=== PATIENT | female | born 1945 | race Caucasian/White ===

== ENCOUNTER 2024-02-29 09:57 | Emergency (ER) | payer MEDICARE, SELFPAY ==
[2024-02-29 10:05] VITALS: BP 176/83; PULSE 79; RESP 16; TEMP 36.8; O2SAT 97
--- NOTE | 2024-02-29 10:15 | ED.WOUNDLAC ---
HPI - Wound/Laceration General Chief Complaint: Wound/Laceration Stated Complaint: R hand skin tear Time Seen by Provider: 02/29/24 10:00 History of Present Illness HPI narrative: 78-year-old female presenting to the emergency department for evaluation of a large right hand wound. Patient states that she scraped it against a wooden coffee table and avulsed the top layer of her skin on the dorsum of her right hand. She has a very large defect measuring approximately 8 cm and jagged. The top layer of skin and subcutaneous tissue was filleted down with exposure of the underlying musculature but no exposure of tendons or vasculature. Patient is not sure of her tetanus is up-to-date. She did not take any for pain prior to arrival. Denies any other injuries. States she was otherwise in her normal state of health. She has thin skin and bruises easily. No other symptoms at this time. Injury occurred several hours prior to arrival. Bleeding is controlled with direct pressure. Related Data Allergies Allergy/AdvReac Type Severity Reaction Status Date / Time No Known Allergies Allergy Verified 02/29/24 09:58 Review of Systems Review of Systems: As reviewed above in HPI Exam Narrative: GENERAL: [Well-appearing, well-nourished, and in no acute distress.] HEAD: [Normocephalic, atraumatic.] EYES: [PERRLA and EOMI.] ENT: Nares clear, no rhinorrhea or epistaxis. Mucous membranes moist. NECK: Supple. CHEST: [Clear to auscultation. No respiratory distress.] HEART: [Regular rate and rhythm]. No murmur heard. [Normal peripheral pulses.] ABDOMEN: [Soft, nondistended], [nontender], [No rigidity or guarding] EXTREMITIES: Normal range of motion. 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 No active bleeding but there is exposed subcutaneous tissues. No involvement of the muscle layer, no vasculature is exposed. NEURO: [No focal deficits]. Alert and oriented [x3.] PSYCH: [Normal mood and affect.] Course Vital Signs Vital signs: Vital Signs Temperature 36.8 C 02/29/24 10:05 Pulse Rate 79 02/29/24 10:05 Respiratory Rate 16 02/29/24 10:05 Blood Pressure 176/83 H 02/29/24 10:05 Pulse Oximetry 97 02/29/24 10:05 Oxygen Delivery Room Air 02/29/24 10:05 Temperature 37.2 C 02/29/24 11:01 Pulse Rate 79 02/29/24 10:05 Respiratory Rate 16 02/29/24 10:05 Blood Pressure 176/83 H 02/29/24 10:05 Pulse Oximetry 97 02/29/24 10:05 Oxygen Delivery Room Air 02/29/24 10:05 Procedures Laceration Laceration 1: Date: 02/29/24 Time: 11:27 Site: hand Side (If applicable): right Size (cm): 8 Description: stellate, flap, irregular and contaminated Depth: simple, single layer Local Anesthetic: other anesthetic (topical LET gel) Amount of anesthesia used (mL): 3 Pre-repair: wound explored, irrigated extensively (150cc NS), minor debridement, deep structures intact and wound margins revised (revised skin flaps for good wound edge approximation) ====== Skin Level ====== Skin layer closed with: nylon, dermabond and steri strips Size (cm): 5-0 Number of sutures: 8 Technique: simple, interrupted ====== Subcutaneous Layer ====== ====== Muscle Layer ====== ====== Tendon Layer ====== Dressing: Non adherent dressing, pressure dressing with Pepe wrap MDM - Wound/Laceration MDM Narrative Medical decision making narrative: 78-year-old female presents with large jagged skin tear and laceration to her right upper extremity wall scraping against a coffee table at home. Patient is not sure for tetanus is up today. She has a very large 8 cm jagged laceration and skin tear that requires repair. Please see procedure note above for full details. Her tetanus will be updated she was provided Tylenol and ibuprofen for pain control and let gel was applied for topical anesthesia prior to repair with both suture material and Dermabond with Steri-Strips bolstering with a complex repair. No imaging needed at this time. Patient tolerated the procedure well and is stable for discharge home at this time with wound care instructions and return precautions as well as instructions for follow-up for wound check and suture removal. Patient family verbalized understanding and were safe for discharge. Differential Diagnosis Differential diagnosis: Likely laceration, abrasion and avulsion of skin Medical Records Attestation: I reviewed the patient's medical records. Discharge Plan Discharge Clinical Impression: Complicated laceration of hand, Avulsion of skin Patient Disposition: Home, Self-Care Condition: Stable Instructions: Antibiotic Form, Care For Your Stitches (ED), Laceration (ED), Skin Avulsion (ED), Skin Adhesive Care (ED), Steristrips (ED) Additional Instructions: We have provided wound care instructions under discharge instructions, follow-up in 10-14 days for wound check and suture removal at that time. If any persistent bleeding happens applied direct pressure and return. Follow-up with regular doctor, Urgent Care, or any emergency department for wound check and removal. Tylenol and ibuprofen for pain control and swelling. Patient Language: Amharic Follow-up/Referrals: PHYSICIAN NOT ON STAFF,NONSTAFF [Primary Care Provider] - Time of Disposition: 11:31
[2024-02-29] MEDS: LIDOCAINE, EPINEPHRINE, TETRACAINE VISCOUS SOLN 3 ML TOPICAL (10:16)
[2024-02-29] MEDS: IBUPROFEN 600 MG TABLET PO (10:16)
[2024-02-29] MEDS: ACETAMINOPHEN 500 MG TABLET 1000 MG PO (10:17)
[2024-02-29] MEDS: TETANUS,DIPHTHERIA,AC PERTUSSIS ADULT (0.5 ML) BOOSTRIX (10:17)
[2024-02-29 11:01] VITALS: TEMP 37.2
== END 2024-02-29 11:40 | disposition home or self-care (01) ==
PROVIDERS: Emergency Provider Student in an Organized Health Care Education/Training Program
DX: S61.411A Laceration without foreign body of right hand, initial encounter (principal); W22.03XA Walked into furniture, initial encounter; Z23 Encounter for immunization
CPT/HCPCS: 12004; 90715; 99282; A9270

== ENCOUNTER 2024-03-10 09:36 | Emergency (ER) | payer MEDICARE, SELFPAY ==
--- NOTE | 2024-03-10 09:44 | ED.GENADULT ---
HPI - General Adult General Chief complaint: Skin/Abscess/Foreign Body Stated complaint: R HAND INJURY Source: patient Mode of arrival: ambulatory Limitations: no limitations History of Present Illness HPI narrative: 78-year-old female presented for complaint of a wound to the right hand sustained 10 days ago. Endorses a skin tear injury from striking her hand on a table. She was seen in at outside facility the day of, states sutures were placed as well as Steri-Strips and glue over this skin wound. According to the daughter the skin wound appeared to be closed at the time. They kept the wound covered for 4 days, then applied CeraVe ointment. Yesterday they removed steri strips and noted the hand was red, the wound looks worse with bloody drainage, and the skin is 'flapping.' Endorses pain and decreased ROM with movement of the wrist. Denies numbness, tingling or weakness to hand hand/fingers, change in temperature or decreased ROM to the fingers. Denies n/v/d/f/c. Related Data Allergies Allergy/AdvReac Type Severity Reaction Status Date / Time No Known Allergies Allergy Verified 03/10/24 10:14 Review of Systems Review of Systems: CONSTITUTIONAL: Denies body aches, fever, chills, or sweats. CARDIOVASCULAR: Denies chest pain, palpitations, or edema. RESPIRATORY: Denies cough or dyspnea. GASTROINTESTINAL: Denies abdominal pain, nausea, vomiting, or diarrhea. SKIN: reports right hand redness, drainage NEUROLOGIC: Denies numbness, tingling, or weakness. PMFSH Comments At time of signature, I have reviewed and agree with nursing past medical, surgical, social and family history unless otherwise noted. Please see nursing chart for further information. There is no relevant family history pertinent to the presenting complaint Exam Narrative: GENERAL: Well-appearing EYES: conjunctivae clear, and EOMI. ENT: Mucous membranes moist. CHEST: Clear to auscultation. HEART: Regular rate and rhythm. SKIN: Warm, dry. Right dorsal hand erythematous with mild swelling, 6x4cm area of slough with foul odor. No streaking. CMS intact to digits. Decreased ROM to wrist. NEURO: Alert and oriented x3. Course Course Emergency Course: Patient is aware of diagnosis, understands and agrees to treatment plan. Anticipatory guidance given. Patient agrees to follow-up as directed and is aware of reasons to seek care at the emergency department. Portions of this record may have been created with voice recognition software Level of Care: Express Care Visit Vital Signs Vital signs: Vital Signs Temperature 98.4 F 03/10/24 09:49 Pulse Rate 72 03/10/24 09:49 Respiratory Rate 16 03/10/24 09:49 Blood Pressure 161/81 H 03/10/24 09:49 Pulse Oximetry 100 03/10/24 09:49 Temperature 98.4 F 03/10/24 09:49 Pulse Rate 72 03/10/24 09:49 Respiratory Rate 16 03/10/24 09:49 Blood Pressure 161/81 H 03/10/24 09:49 Pulse Oximetry 100 03/10/24 09:49 Reviewed Transfer Transfered to: [facility] Transportation: Other (private vehicle) Transfer rationale: Pt is agreeable to transfer. Requests transfer to [facility] via private vehicle. Risks of transportation reviewed with pt including injury, worsening of condition and . v/u. Daughter will be driving pt; Report called to hospital, spoke with Dr Paiz, accepting physician. Pt is in stable condition at time of transfer. Advised to remain NPO and go directly to the hospital. Medical Decision Making MDM Narrative Medical decision making narrative: Discussed physical exam findings. Wound cleansed with skintegrity and saline, vaseline gauze and telfa applied. Advised ER transfer for further evaluation. Pt is new to the area, establishing with pcp next week. Requesting [facility]. Differential Diagnosis Differential Diagnosis: Abrasion, avulsion, laceration, cellulitis Vital Signs Vital Signs: Vital Signs Temperature 98.4 F 03/10/24 09:49 Pulse Rate 72 03/10/24 09:49 Respiratory Rate 16 03/10/24 09:49 Blood Pressure 161/81 H 03/10/24 09:49 Pulse Oximetry 100 03/10/24 09:49 Temperature 98.4 F 03/10/24 09:49 Pulse Rate 72 03/10/24 09:49 Respiratory Rate 16 03/10/24 09:49 Blood Pressure 161/81 H 03/10/24 09:49 Pulse Oximetry 100 03/10/24 09:49 Discharge Plan Discharge Clinical Impression: Cellulitis Patient Disposition: Acute Care Hospital Condition: Stable Patient Language: Irish Follow-up/Referrals: Dino,Nika [Other] Time of Disposition: 10:15
[2024-03-10 09:49] VITALS: BP 161/81; PULSE 72; RESP 16; TEMP 36.9; O2SAT 100
== END 2024-03-10 10:15 | disposition short-term general hospital (02) ==
PROVIDERS: Emergency Provider Nurse Practitioner Family
DX: L03.113 Cellulitis of right upper limb (principal)
CPT/HCPCS: 99212; 99213; G0463

== ENCOUNTER 2024-03-10 10:40 | Emergency (ER) | payer MEDICARE, SELFPAY ==
[2024-03-10 10:49] VITALS: BP 176/75; PULSE 71; RESP 18; TEMP 36.4; O2SAT 100
[2024-03-10 13:01] LABS: Basophils Percent Auto 0.2 % (0.2-1.2); Eosinophils Absolute Auto 0.2 K/mm3 (0-0.3); Eosinophils Percent Auto 1.9 % (0-4.4); Hematocrit 38.7 % (37.0-47.0); Immature Granulocyte Absolute 0.04 K/mm3 (0.00-0.031); Immature Granulocyte Percent A 0.5 % (0-0.5); Lymphocytes Absolute Auto 1.57 K/mm3 (0.9-3.2); Lymphocytes Percent Auto 18.6 % (18.3-44.2); Mean Corpuscular HGB Conc 33.6 g/dl (32-36); Mean Corpuscular Hemoglobin 32.4 pg (26-34); Mean Corpuscular Volume 96.5 fl (80-100); Mean Platelet Volume 9.8 fl (7.4-10.4); Monocytes Absolute Auto 1.1 K/mm3 (0.1-0.6); Monocytes Percent Auto 12.6 % (2.6-8.5); Neutrophils Absolute Auto 5.6 K/mm3 (1.3-6.7); Neutrophils Percent Auto 66.2 % (45.5-73.1); Platelet Count Result 297 k/mm3 (150-375); Red Blood Count 4.01 M/mm3 (4.2-5.4); Red Cell Distribution Width 11.9 % (11.5-14.5); White Blood Count 8.4 K/mm3 (4.5-10.0)
--- NOTE | 2024-03-10 13:08 | ED_ITS ---
HPI - Extremity Problem General Chief complaint: Extremity Problem,Nontraumatic Stated complaint: hand infection Time Seen by Provider: 03/10/24 12:19 History of Present Illness HPI Narrative: Patient is a 70-year-old female who presents ER with wound to the dorsum of the right hand extending to the wrist. Had a skin tear about 10 days ago and it was sutured shut. Initially looked well but then the skin began to and she is left with a weeping ulceration. Was seen in urgent care who sent her here for further evaluation. Patient reports her fingers were all swollen but the swelling has decreased. No fevers or chills or sweats. No additional trauma. Tetanus shot updated on a previous visit. Related Data Allergies Allergy/AdvReac Type Severity Reaction Status Date / Time No Known Allergies Allergy Verified 03/10/24 10:14 Review of Systems 2 Constitutional: Constitutional: Reports no additional constitutional complaints Musculoskeletal: Musculoskeletal: Reports no additional musculoskeletal complaints Integumentary/Breasts: Skin/Breast: Reports system reviewed and no additional complaints, except as docu and Reports skin ulcer Exam 2 Narrative: GENERAL: Well-appearing, well-nourished, and in no acute distress. HEAD: Normocephalic, atraumatic. ENT: Mucous membranes moist. EXTREMITIES: Normal range of motion. No edema. SKIN: Warm, dry. Ulcerated sloughing wound of the dorsum of the right hand extending to the wrist. Surrounding erythema is noted with mild warmth. No purulent drainage. No exposure of bone or tendon. There to dry eschar centrally within the wound. Measures 3 cm x 3.5 cm. Initial wound was 8 cm in circumference NEURO: Alert and oriented x3. PSYCH: Normal mood and affect. Course Course Emergency Course: Informed of results. Discussed with Dr. Alexander. Will start doxycycline. F/u in clinic and wound care will be required. Dressed with nonadherent. Vital Signs Vital signs: Vital Signs Temperature 97.6 F 03/10/24 10:49 Pulse Rate 71 03/10/24 10:49 Respiratory Rate 18 03/10/24 10:49 Blood Pressure 176/75 H 03/10/24 10:49 Pulse Oximetry 100 03/10/24 10:49 Oxygen Delivery Room Air 03/10/24 10:49 Temperature 97.6 F 03/10/24 10:49 Pulse Rate 71 03/10/24 10:49 Respiratory Rate 18 03/10/24 10:49 Blood Pressure 176/75 H 03/10/24 10:49 Pulse Oximetry 100 03/10/24 10:49 Oxygen Delivery Room Air 03/10/24 10:49 MDM - Extremity (Nontraumatic) Lab Data 03/10/24 12:49 03/10/24 12:49 Labs: Lab Results 03/10/24 Range/Units 12:49 WBC 8.4 (4.5-10.0) K/mm3 RBC 4.01 L (4.2-5.4) M/mm3 Hgb 13.0 (12.0-15.0) g/dL Hct 38.7 (37.0-47.0) % MCV 96.5 (80-100) fl MCH 32.4 (26-34) pg MCHC 33.6 (32-36) g/dl RDW 11.9 (11.5-14.5) % Plt Count 297 (150-375) k/mm3 MPV 9.8 (7.4-10.4) fl Immature Gran % (Auto) 0.5 (0-0.5) % Neut % (Auto) 66.2 (45.5-73.1) % Lymph % (Auto) 18.6 (18.3-44.2) % [place] % (Auto) 12.6 H (2.6-8.5) % Eos % (Auto) 1.9 (0-4.4) % Baso % (Auto) 0.2 (0.2-1.2) % Lymph # (Auto) 1.57 (0.9-3.2) K/mm3 [place] # (Auto) 1.1 H (0.1-0.6) K/mm3 Eos # (Auto) 0.2 (0-0.3) K/mm3 Baso # (Auto) 0.0 (0.0-0.1) K/mm3 Abs Immat Gran (auto) 0.04 H (0.00-0.031) K/mm3 Absolute Neuts (auto) 5.6 (1.3-6.7) K/mm3 Absolute Nucleated RBC 0.000 (0.0-0.012) K/mm3 Nucleated RBC % 0.0 (0.0-0.2) % Sodium 134 L (137-145) mmol/L Potassium 4.8 (3.4-5.0) mmol/L Chloride 98 (98-107) mmol/L Carbon Dioxide 26 (22-30) mmol/L Anion Gap 10 (4-12) mmol/L BUN 17 (7-17) mg/dL Creatinine 0.53 L (0.7-1.0) mg/dL Estim Creat Clear Calc 68 ml/min Estimated GFR > 60 (59 - ) Glucose 96 (65-110) mg/dL Calcium 9.4 (8.4-10.2) mg/dL Total Bilirubin 0.8 (0.2-1.3) mg/dL AST 30 (14-36) U/L ALT 16 (6-35) U/L Alkaline Phosphatase 143 H (38-126) U/L Total Protein 8.0 (6.3-8.2) g/dL Albumin 4.5 (3.5-5.1) g/dL Discharge Plan Discharge Clinical Impression: Non-healing wound Patient Disposition: Home, Self-Care Condition: Stable Instructions: Chronic Wounds (ED) Additional Instructions: Contact the physician listed to get close follow-up. He will likely need to be referred to Wound Care for further debridement and care of your wound. Take doxycycline to control any infection that may be occurring. Patient Language: Irish Prescriptions: New doxycycline hyclate 100 mg capsule 100 mg PO BID Qty: 20 0RF Follow-up/Referrals: Dino,Nika [Other] Sangeeta Alexander MD [Physician] - 1 Week
[2024-03-10 13:26] LABS: Alanine Aminotransferase 16 U/L (6-35); Albumin Level 4.5 g/dL (3.5-5.1); Alkaline Phosphatase 143 U/L (38-126); Anion Gap 10 mmol/L (4-12); Aspartate Amino Transferase 30 U/L (14-36); Bilirubin,Total 0.8 mg/dL (0.2-1.3); Blood Urea Nitrogen 17 mg/dL (7-17); Calcium 9.4 mg/dL (8.4-10.2); Carbon Dioxide 26 mmol/L (22-30); Chloride 98 mmol/L (98-107); Estimated CRCL calculation 68 ml/min; Estimated Glomerular Filt Rate > 60; Glucose 96 mg/dL (65-110); Potassium 4.8 mmol/L (3.4-5.0); Sodium 134 mmol/L (137-145)
[2024-03-10 14:56] VITALS: BP 170/106; PULSE 71; RESP 18; TEMP 36.3; O2SAT 99
== END 2024-03-10 14:57 | disposition home or self-care (01) ==
PROVIDERS: Emergency Provider Emergency Medicine
DX: S61.401A Unspecified open wound of right hand, initial encounter (principal); X58.XXXA Exposure to other specified factors, initial encounter
CPT/HCPCS: 36415; 80053; 85025; 99283

== ENCOUNTER 2024-07-21 08:04 | Outpatient (CLI) | payer MEDICARE, SELFPAY ==
--- NOTE | ~2024-07-21 | DEXA_ITS ---
Bone Density Report Name: KT RUSHING Age: 79 Sex: Female Ethnicity: White Date of : 1945 Indication: postmenopausal; screening for osteoporosis; height loss; hysterectomy; Referring Provider: MIRZA, EMERY Saxena Study: Bone densitometry was performed. Exam Date: July 21, 2024 Accession number: [id number] Bone Density: Region BMD T-score Z-score Classification AP Spine(L1-L4) 1.226 1.6 4.3 Normal Femoral Neck (Left) 0.634 -1.9 0.3 Osteopenia Total Hip (Left) 0.809 -1.1 0.9 Osteopenia Femoral Neck (Right) 0.640 -1.9 0.4 Osteopenia Total Hip (Right) 0.777 -1.4 0.7 Osteopenia Total Hip Mean 0.793 -1.3 0.8 Osteopenia World Health Organization criteria for BMD impression classify patients as: Normal (T-score at or above -1.0), Osteopenia (T-score between -1.0 and -2.5), or Osteoporosis (T-score at or below -2.5). 10-year Fracture Risk(1): Major Osteoporotic Fracture 15% Hip Fracture 4.2% Reported Risk Factors: [place] (), Neck BMD=0.634, BMI=23.7 (1) FRAX(R) Version 3.08. Fracture probability calculated for an untreated patient. Fracture probability may be lower if the patient has received treatment. Clinical Information Provided by Patient: Has used the following medications: Vitamin D, Calcium Has the following medical conditions: Hysterectomy Patient maximum height was 67.0 Menopause Age: 27 No regular weight bearing exercise Drinks caffeinated beverages Onset of menses at age 13 Number of children 1 Impression: The patient has low bone mass, based on the Left Femoral Neck T-score. The patient has an estimated ten-year risk of hip fracture of 4.2% and an estimated ten-year risk of major fracture of 15%, based on the WHO FRAX algorithm. Discussion: BONE DENSITY IS LOW AT ONE OR MORE SKELETAL SITES. THE PATIENT'S BMD AND CLINICAL RISK FACTORS CONTRIBUTE TO THIS PATIENT'S INCREASED RISK OF FRACTURE. This patient's lowest T-score is low at one or more skeletal sites. It meets the World Health Organization's (WHO) criteria for ?low bone mass? (T-score between -1.0 and -2.5). The patient's 10-year risk of hip fracture as calculated by FRAX exceeds the threshold where pharmacological therapy is recommended by the National Osteoporosis Foundation (NOF). However, all treatment decisions require clinical judgment and consideration of individual patient factors, including patient preferences, comorbidities, previous drug use, risk factors not captured in the FRAX model (e.g., frailty, falls, vitamin D deficiency, increased bone turnover, interval significant decline in bone density) and possible under or overestimation of fracture risk by FRAX. The patient should follow a healthful lifestyle (good nutrition with adequate calcium and vitamin D, and appropriate weight-bearing exercise). Follow-Up: Consider a repeat BMD and Vertebral Fracture Assessment (VFA) exam in 2 years or sooner if medically necessary, to reassess this patient's status. Reported by: SAULO on 07/21/2024 8:56:00 AM. Reviewed, dictated and finalized at location A.
== END 2024-07-21 08:05 | disposition home or self-care (01) ==
LOC: MICIMG 08:05
PROVIDERS: Visit Provider Family Medicine
DX: M85.89 Other specified disorders of bone density and structure, multiple sites (principal); Z78.0 Asymptomatic menopausal state
CPT/HCPCS: 77080